=== PATIENT | female | born 1950 | race Hispanic/Latino ===

== ENCOUNTER 2018-02-19 11:14 | Outpatient (CLI) | payer MEDICARE | END 2018-02-19 11:15 | disposition home or self-care (01) | LOC: BICMAMMO 11:14 | PROVIDERS: ATTEND Family Medicine | DX: Z12.31 Encounter for screening mammogram for malignant neoplasm of breast (principal) | CPT/HCPCS: 77063; 77067 ==

== ENCOUNTER 2018-11-09 11:43 | Outpatient (CLI) | payer MEDICARE ==
--- NOTE | 2018-11-09 12:46 | RAD ---
Exam: Chest one view 3 views left RIBS HISTORY: Fall 2 months ago. Continued the left rib pain COMPARISON: 06/11/2011 FINDINGS: Chest one view: Left sided defibrillator with lead positioned over the right atrium and rig ht ventricle. Normal cardiac silhouette. Lungs and pleural spaces are clear. Chronic changes lung parenchyma. No pneumothorax or osseous abnormalities Left RIBS: No fracture. No cortical irregularity or periosteal reaction IMPRESSION: 1. No acute cardiopulmonary process 2. No evidence of left rib fracture.
== END 2018-11-09 11:44 | disposition home or self-care (01) ==
LOC: SCSRAD 11:43
PROVIDERS: ATTEND Family Medicine
DX: R07.89 Other chest pain (principal)

== ENCOUNTER 2018-12-29 10:10 | Outpatient (CLI) | payer MEDICARE ==
--- NOTE | 2018-12-29 10:39 | RAD ---
Exam: Thoracic spine 3 views HISTORY: Mid back pain. COMPARISON: None FINDINGS: 12 thoracic type vertebral bodies. Vertebral body height is obtained. No fracture. Mild los s of disc space height at multiple levels of the thoracic spine. No malalignment. There is diffuse bone demineralization. IMPRESSION: No fracture.
== END 2018-12-29 10:11 | disposition home or self-care (01) ==
LOC: SCSRAD 10:10
PROVIDERS: ATTEND Family Medicine
DX: M54.9 Dorsalgia, unspecified (principal)
CPT/HCPCS: 72072

== ENCOUNTER 2019-02-18 09:14 | Outpatient (CLI) | payer MEDICARE ==
--- NOTE | 2019-02-18 12:11 | RAD ---
RADIOGRAPH RIGHT LEG TIBIA FIBULA 2 VIEWS: DATE: 02/18/2019. HISTORY: A 68-year-old female with right leg pain. FINDINGS: Osteopenia. No fracture, periostitis, osteolytic or osteoblastic lesion, or permeative lesion, is id entified involving the tibia or fibula. However, on the lateral view, the anterior edge of the tibia, especially the distal tibial metaphysis , is excluded from the field of view. No soft tissue calcifications are visualized. IMPRESSION: 1. Anterior edge of tibia excluded from field of view on the lateral view. 2. Recommend repeat lateral view. 3. No focal osseous abnormality of the tibia or fibula identified. POS: [facility]
--- NOTE | 2019-02-18 16:25 | RAD ---
EXAM: THREE VIEWS OF THE LUMBAR SPINE: 02/18/19 HISTORY: Injury. Pain. Pain radiates down the right buttock to the foot. FINDINGS: Five lumbar type vertebrae. Lumbar spine vertebral body height is maintained. No fracture. No spondyl olisthesis or spondylolysis. There appears to be diffuse bone demineralization. Correlate for osteopo rosis. Consider DEXA study. IMPRESSION: 1. Unremarkable three views lumbar spine. 2. Diffuse bone demineralization. Correlate for osteoporosis. 3. Further evaluation with MRI if clinically warranted. POS: OFF
== END 2019-02-18 09:15 | disposition home or self-care (01) ==
LOC: SCSRAD 09:14
PROVIDERS: ATTEND Family Medicine
DX: M54.16 Radiculopathy, lumbar region (principal); M81.0 Age-related osteoporosis without current pathological fracture
CPT/HCPCS: 72100

== ENCOUNTER 2019-03-03 08:59 | Outpatient (CLI) | payer MEDICARE ==
--- NOTE | 2019-03-03 09:43 | BD ---
EXAM: DEXA bone density examination HISTORY: 68-year-old postmenopausal female for screening COMPARISON: None FINDINGS: L1--bone mineral density 0.834 g/sq cm; T score -1.4 L2--bone mineral density 0.857 g/sq cm; T score -1.6 L3--bone mineral density 0.917 g/sq cm; T score -1.5 L4--bone mineral density 0.890 g/sq cm; T score -1.6 Total L1-L4--bone mineral density 0.877 g/sq cm; T score -1.5 Left femoral neck--bone mineral density0.735; T score -1.0 Total proximal left femur--bone mineral density 0.934; T score -0.1 IMPRESSION: Osteopenia This patient has a 10 year WHO fracture risk of a major osteoporotic fracture of 13% and of a hip fracture of 3.1%.
--- NOTE | 2019-03-03 10:46 | MMO ---
Bilateral MAMMO Bilat Screen [facility]. CLINICAL HISTORY: Patient is 68 years old and is seen for screening. The patient has no family history of breast cancer. The patient has no personal history of cancer. VIEWS: The views performed were: bilateral craniocaudal with tomosynthesis and bilateral mediolateral oblique with tomosynthesis. FILMS COMPARED: The present examination has been compared to prior imaging studies performed at [facility] on 11/13/2011, and at [facility] on 02/19/2018. MAMMOGRAM FINDINGS: There are scattered fibroglandular densities. There are no suspicious masses, suspicious calcifications, or new areas of architectural distortion. IMPRESSION: THERE IS NO MAMMOGRAPHIC EVIDENCE OF MALIGNANCY. A ROUTINE FOLLOW-UP MAMMOGRAM IN 1 YEAR IS RECOMMENDED. THE RESULTS OF THIS EXAM WERE SENT TO THE PATIENT. ACR BI-RADS Category 1 - Negative MAMMOGRAPHY NOTE: 1. A negative mammogram report should not delay a biopsy if a dominant of clinically suspicious mass is present. 2. Approximately 10% to 15% of breast cancers are not detected by mammography. 3. Adenosis and dense breasts may obscure an underlying neoplasm. Reported by: PETROS TORIBIO MD Electonically Signed: [id number]
== END 2019-03-03 09:00 | disposition home or self-care (01) ==
LOC: BICMAMMO 08:59
PROVIDERS: ATTEND Family Medicine
DX: Z12.31 Encounter for screening mammogram for malignant neoplasm of breast (principal); Z13.820 Encounter for screening for osteoporosis; M85.89 Other specified disorders of bone density and structure, multiple sites
CPT/HCPCS: 77063; 77067; 77080

== ENCOUNTER 2019-03-30 08:59 | Outpatient (CLI) | payer MEDICARE ==
--- NOTE | 2019-03-30 09:57 | CT ---
EXAM: CT chest without contrast PROVIDED CLINICAL HISTORY: History of smoking COMPARISON: 07/08/2016 FINDINGS: The heart, pericardium and great vessels are suboptimally evaluated in the absence of IV contrast mat erial. Cardiac pacing device and vascular calcifications are again seen. There is no evidence for thoracic lymph node enlargement with limitations due to lack of IV contrast. No discrete pulmonary nodules are evident. No groundglass opacity or kar consolidation. The airway appears patent and of normal caliber. There is no evidence for pleural fluid or pneumothorax. The visualized portions of the upper abdomen demonstrate an unremarkable unenhanced CT appearance. The osseous structures demonstrate no concerning osteoblastic or osteolytic lesions. IMPRESSION: Lung RADS category 1-negative. Continue annual screening.
== END 2019-03-30 09:00 | disposition home or self-care (01) ==
LOC: CT 08:59
PROVIDERS: ATTEND Family Medicine
DX: F17.210 Nicotine dependence, cigarettes, uncomplicated (principal)
CPT/HCPCS: G0297

== ENCOUNTER 2019-04-09 06:35 | Day surgery (SDC) | payer MEDICARE ==
[~2019-04-09 06:35] MED LIST: FLU VACC TS2019-20(65YR UP)/PF 180 MCG/0.5 ML SYRINGE IM ONE; Prevnar 13-Val Conj/PF 0.5 ML SYRINGE IM ONE
[2019-04-09 08:00] VITALS: BP 148/91; TEMP 97.6; BMI 25.7
--- NOTE | 2019-04-09 10:28 | CT ---
CT CERVICAL SPINE WITH CONTRAST: (CT CERVICAL MYELOGRAM) DATE: 04/09/2019 HISTORY: 68-year-old female with cervical radiculopathy. FINDINGS: Vertebral body heights are maintained. Alignment is normal. No severe disc space narrowing at any lev el. Mild to moderate right facet DJD at C4-5 and C5-6. No severe facet DJD at any level. C1-2: Severe DJD at atlantoodontoid joint. Bilateral atlantoaxial joints are normal. No central steno sis. C2-3: Normal C3-4: Small central disc protrusion abuts the ventral surface of the spinal cord without indentation. No central stenosis or neural foraminal stenosis. C4-5: Small central disc protrusion abuts the ventral surface of the spinal cord without indentation. No central stenosis. Mild right neural foraminal stenosis. No left neural foraminal stenosis. C5-6: Ligamentum flavum thickening. Small central disc protrusion abuts the ventral surface of spinal cord without indentation. Overall moderate central spinal canal stenosis. Mild to moderate right neural foraminal stenosis. No left neural foraminal stenosis. C6-7: Small left paracentral disc protrusion which abuts the left ventral surface of the spinal cord without indentation. No high-grade central stenosis. No right-sided neural foraminal stenosis. Mild to moderate left neural foraminal stenosis. C7-T1: Normal. IMPRESSION: 1.) Mild cervical spondylosis. 2) moderate central spinal canal stenosis at C5-6. 3) mild to moderate right facet osteoarthrosis at C4-5 and C5-6.
--- NOTE | 2019-04-09 11:12 | CT ---
CT thoracic spine with contrast: ([facility] thoracic myelogram) DATE: 04/09/2019 HISTORY: Thoracic back pain. FINDINGS: Vertebral body heights are maintained. Multilevel mild degenerative disc changes at mid and lower lev els. No central spinal canal stenosis at any level. No moderate sized or large disc herniation impinging on spinal cord or nerve root. Thoracic spinal cord is normal in caliber, position, and shap e. Unremarkable perivertebral spaces. No high-grade neural foraminal stenosis. Left subclavian AICD. IMPRESSION: 1. Mild mid and lower thoracic spondylosis. 2. Otherwise normal.
--- NOTE | 2019-04-09 11:18 | CT ---
CT lumbar spine with contrast: (CT lumbar myelogram) DATE: 04/09/2019 HISTORY: 68-year-old female with low back pain and lumbar radiculopathy. FINDINGS: There are 5 lumbar-type vertebrae. No scoliosis, spondylolysis, or spondylolisthesis. No high-grade d isc space narrowing at any level. Vertebral body heights are maintained. Conus medullaris terminates at L1-2. No high-grade disc space narrowing at any level. Minimal disc bulges at several l evels. No high-grade neural foraminal stenosis at any level. Moderate to severe bilateral facet DJD at L4-5. The cauda equina is diffusely mildly tortuous, despite lack of significant central spinal ca nal stenosis at any level. The exact etiology of this mild tortuosity is uncertain. One possibility is mild chronic arachnoiditis, but the appearance is not typical. Perivertebral spaces are unremarkab le. Sclerosis and vacuum joint phenomenon at the anterior inferior portions of the bilateral SI joints. IMPRESSION: 1. High-grade bilateral facet osteoarthrosis at L4-5. 2. Osteoarthrosis of bilateral sacroiliac joints. 3. No significant central spinal canal stenosis, significant neural foraminal stenosis, or nerve root impingement, at any level.
--- NOTE | 2019-04-09 12:22 | RAD ---
MYELOGRAM LUMBAR MYELOGRAM THORACIC MYELOGRAM CERVICAL: DATE: 04/09/2019 HISTORY: 68-year-old female with lumbar radiculopathy, low back pain, thoracic spine pain, and cervical radicu lopathy. TECHNIQUE: Signed informed consent obtained. [place] Lacer radiographic images of L-spine, T-spine, and C-spine obtained . Patient placed prone AMHARIC position on fluoroscopy table. Skin of lower back prepared and draped in usual sterile fashion. 25-gauge needle used to apply buffered lidocaine. 22-gauge spinal needle advan meri from right paramedian approach at L2-3 interlaminar level.. Upon brisk return of clear CSF, a total of 5 mL of CSF was removed slowly. A total of 10 mL of Isovue-M 300 was injected intrathecally under brief, intermittent fluoroscopy. Needle was removed. Table was tilted prone Trendelenburg to allow contrast to enter the T-spine and C-spine. Patient was then taken to CT. She tolerated the proc edure well. No complications. Fluoroscopy time: 3.7 minutes Dose area product: 291.6 uGy*cm^2 FINDINGS: Lumbar spine: Surgical clips anterior to the left side of the lumbar spine. 5 lumbar-type vertebrae. Vertebral body heights and disc spaces are maintained. No major spondylolisthesis. No high-grade central thecal sac stenosis on the postinjection image. Thoracic spine: Vertebral body heights are maintained. Mildly exaggerated kyphosis. Left subclavian dual lead AICD. Cervical spine: No major pathology identified on scouts images. IMPRESSION: 1.) Successful lumbar, thoracic, and cervical myelogram. 2) separate reports of CT myelograms
== END 2019-04-09 10:30 | disposition home or self-care (01) ==
LOC: RAD 06:35 → EDSTATUS 08:00 → RAD 10:30
PROVIDERS: ATTEND Neurological Surgery
DX: M50.11 Cervical disc disorder with radiculopathy, high cervical region (principal); M47.22 Other spondylosis with radiculopathy, cervical region; M48.02 Spinal stenosis, cervical region; M47.26 Other spondylosis with radiculopathy, lumbar region; M47.814 Spondylosis without myelopathy or radiculopathy, thoracic region; M47.28 Other spondylosis with radiculopathy, sacral and sacrococcygeal region; Z88.0 Allergy status to penicillin; Z88.1 Allergy status to other antibiotic agents; Z91.040 Latex allergy status
CPT/HCPCS: 62305; 72126; 72129; 72132

== ENCOUNTER 2020-09-25 13:06 | Outpatient (CLI) | payer MEDICARE | END 2020-09-25 13:07 | disposition home or self-care (01) | LOC: BICCT 13:06 | PROVIDERS: ATTEND Family Medicine | DX: Z12.2 Encounter for screening for malignant neoplasm of respiratory organs (principal); F17.210 Nicotine dependence, cigarettes, uncomplicated | CPT/HCPCS: 71271 ==

== ENCOUNTER 2021-10-04 08:30 | Outpatient (CLI) | payer MEDICARE | END 2021-10-04 08:31 | disposition home or self-care (01) | LOC: BICMAMMO 08:30 | PROVIDERS: ATTEND Family Medicine | DX: Z12.31 Encounter for screening mammogram for malignant neoplasm of breast (principal) | CPT/HCPCS: 77063; 77067 ==

== ENCOUNTER 2021-10-18 07:32 | Outpatient (CLI) | payer MEDICARE | END 2021-10-18 07:33 | disposition home or self-care (01) | LOC: BICCT 07:32 | PROVIDERS: ATTEND Family Medicine | DX: Z12.2 Encounter for screening for malignant neoplasm of respiratory organs (principal); F17.210 Nicotine dependence, cigarettes, uncomplicated; J44.9 Chronic obstructive pulmonary disease, unspecified | CPT/HCPCS: 71271 ==

== ENCOUNTER 2021-10-31 07:45 | Outpatient (CLI) | payer MEDICARE | END 2021-10-31 07:46 | disposition home or self-care (01) | LOC: BICMAMMO 07:45 | PROVIDERS: ATTEND Family Medicine | DX: M81.0 Age-related osteoporosis without current pathological fracture (principal); M85.88 Other specified disorders of bone density and structure, other site | CPT/HCPCS: 77080 ==

== ENCOUNTER 2022-02-04 10:47 | Outpatient (CLI) | payer MEDICARE | END 2022-02-04 10:48 | disposition home or self-care (01) | LOC: LABBT 10:47 | PROVIDERS: ATTEND Internal Medicine Gastroenterology | DX: Z20.822 Contact with and (suspected) exposure to COVID-19 (principal) | CPT/HCPCS: 87811 ==

== ENCOUNTER 2022-02-07 09:13 | Day surgery (SDC) | payer MEDICARE ==
[2022-02-06 10:14] VITALS: BMI 26.5
[2022-02-07] MEDS ORDERED: Fentanyl 100 MCG/2 ML VIAL ONE (11:29)
[2022-02-07] MEDS ORDERED: PROPOFOL 200 MG/20 ML VIAL ONE (11:41)
[2022-02-07] MEDS ORDERED: Lidocaine 1% PF 5 ML VIAL ONE (11:41)
[2022-02-07] MEDS ORDERED: ePHEDrine 50 MG/ML VIAL ONE (11:41)
[2022-02-07] MEDS ORDERED: Phenylephrine 10 MG/ML VIAL ONE (11:41)
== END 2022-02-07 13:15 | disposition home or self-care (01) ==
LOC: SDC 09:13
PROVIDERS: ATTEND Internal Medicine Gastroenterology
PROC: 0DBH8ZX Excision of Cecum, Via Natural or Artificial Opening Endoscopic, Diagnostic (ICD-10-PCS; principal; 2022-02-07)
PROC: 0DB98ZX Excision of Duodenum, Via Natural or Artificial Opening Endoscopic, Diagnostic (ICD-10-PCS; 2022-02-07)
PROC: 0DB38ZX Excision of Lower Esophagus, Via Natural or Artificial Opening Endoscopic, Diagnostic (ICD-10-PCS; 2022-02-07)
DX: D12.0 Benign neoplasm of cecum (principal); K29.81 Duodenitis with bleeding; K62.89 Other specified diseases of anus and rectum; K64.8 Other hemorrhoids; B96.81 Helicobacter pylori [H. pylori] as the cause of diseases classified elsewhere; K21.00 Gastro-esophageal reflux disease with esophagitis, without bleeding; K44.9 Diaphragmatic hernia without obstruction or gangrene; Z79.82 Long term (current) use of aspirin; Z79.899 Other long term (current) drug therapy; Z88.0 Allergy status to penicillin; Z88.1 Allergy status to other antibiotic agents; Z91.040 Latex allergy status; Z95.810 Presence of automatic (implantable) cardiac defibrillator
CPT/HCPCS: 88305; 88312; 88342; J2370; J2704; J3010; J3490

== ENCOUNTER 2022-02-18 09:43 | Outpatient (CLI) | payer MEDICARE ==
[2022-02-18] MEDS ORDERED: Iopamidol-370 76% 500 ML 1 ML ONE (11:27)
== END 2022-02-18 09:44 | disposition home or self-care (01) ==
LOC: BICCT 09:43
PROVIDERS: ATTEND Internal Medicine Gastroenterology
DX: R10.32 Left lower quadrant pain (principal); K76.0 Fatty (change of) liver, not elsewhere classified
CPT/HCPCS: 74177; 82565; Q9967

== ENCOUNTER 2022-12-10 09:13 | Day surgery (SDC) | payer MEDICARE ==
[2022-12-06 10:42] VITALS: BMI 27.3
[2022-12-10] MEDS ORDERED: Famotidine/PF 20 mg/2ml Vial ONE (14:06)
[2022-12-10] MEDS ORDERED: fentaNYL 50 mcg/mL 1 mL Vial ONE ×2 (14:06→17:47)
[2022-12-10] MEDS ORDERED: Bacitracin Zinc Ointment 30 gm TUBE ONE (14:12)
[2022-12-10] MEDS ORDERED: Bupivacaine PF 0.5% 30 ML VIAL ONE (14:12)
[2022-12-10] MEDS ORDERED: Vancomycin 1 GM/200 ML (FROZEN) BAG ONE (14:22)
[2022-12-10] MEDS ORDERED: Ondansetron PF 4 MG/2 ML Vial ONE ×2 (14:40→18:10)
[2022-12-10] MEDS ORDERED: Dexamethasone 20 MG/5 ML VIAL ONE (14:40)
[2022-12-10] MEDS ORDERED: PROPOFOL 200 MG/20 ML VIAL ONE (14:40)
[2022-12-10] MEDS ORDERED: Lidocaine 1% PF 5 ML VIAL ONE (14:40)
[2022-12-10] MEDS ORDERED: fentaNYL PF 100 MCG/2 ML SYRINGE ONE (16:22)
== END 2022-12-10 19:00 | disposition home or self-care (01) ==
LOC: SDC 09:13
PROVIDERS: ATTEND Orthopaedic Surgery Hand Surgery
PROC: 01N50ZZ Release Median Nerve, Open Approach (ICD-10-PCS; principal; 2022-12-10)
PROC: 01N40ZZ Release Ulnar Nerve, Open Approach (ICD-10-PCS; 2022-12-10)
PROC: 01S50ZZ Reposition Median Nerve, Open Approach (ICD-10-PCS; 2022-12-10)
PROC: 0JBF0ZZ Excision of Left Upper Arm Subcutaneous Tissue and Fascia, Open Approach (ICD-10-PCS; 2022-12-10)
DX: D17.22 Benign lipomatous neoplasm of skin and subcutaneous tissue of left arm (principal); G56.02 Carpal tunnel syndrome, left upper limb; G56.22 Lesion of ulnar nerve, left upper limb; I47.20 Ventricular tachycardia, unspecified; K92.1 Melena; I42.8 Other cardiomyopathies; E78.00 Pure hypercholesterolemia, unspecified; F17.200 Nicotine dependence, unspecified, uncomplicated; I25.10 Atherosclerotic heart disease of native coronary artery without angina pectoris; Z95.810 Presence of automatic (implantable) cardiac defibrillator; Z88.0 Allergy status to penicillin; Z88.1 Allergy status to other antibiotic agents; Z91.040 Latex allergy status; Z79.899 Other long term (current) drug therapy
CPT/HCPCS: 25075; 64721; J3010; J3370; 88304; J1100; J2405; J2704; S0020; S0028

== ENCOUNTER 2024-05-03 07:06 | Outpatient (CLI) | payer MEDICARE ==
[2024-05-03] MEDS ORDERED: Iopamidol 370 76% 100 ML VIAL ONE (13:11)
== END 2024-05-03 07:07 | disposition home or self-care (01) ==
LOC: CT 07:06
PROVIDERS: ATTEND Internal Medicine Gastroenterology
DX: K92.1 Melena (principal); R10.9 Unspecified abdominal pain; R31.9 Hematuria, unspecified; C56.9 Malignant neoplasm of unspecified ovary; I70.0 Atherosclerosis of aorta; K55.059 Acute (reversible) ischemia of intestine, part and extent unspecified; I70.1 Atherosclerosis of renal artery
CPT/HCPCS: 36415; 74174; 74177; 82565 ×2; Q9967

== ENCOUNTER 2025-05-20 10:08 | Outpatient (CLI) | payer MEDICARE | END 2025-05-20 10:09 | disposition home or self-care (01) | LOC: BICMAMMO 10:08 | PROVIDERS: ATTEND Family Medicine | DX: Z12.2 Encounter for screening for malignant neoplasm of respiratory organs (principal); Z78.0 Asymptomatic menopausal state; F17.218 Nicotine dependence, cigarettes, with other nicotine-induced disorders | CPT/HCPCS: 71271; 77080 ==